=== PATIENT | female | born 1945 | race Caucasian/White ===

== ENCOUNTER 2019-08-20 10:44 | Observation (INO) ==
--- NOTE | 2019-08-20 10:42 | Diag Imaging Result Doc PS360 ---
EXAM: CHEST-2 VIEWS 08/20/2019 HISTORY: Chest Pain TECHNIQUE: PA and lateral chest COMMENT: There is a small platelike opacity in the lingula which was not clearly present on the previous studies of 09/09/2010 and 09/23/2013. The heart size and primary vascularity are within normal limits and otherwise the appearance of the chest has not changed significantly. IMPRESSION: Minimal lingular atelectasis. Electronically signed by Ilya Escudero 08/20/2019 10:39 AM
[~2019-08-20 10:44] MED LIST: ASPIRIN PO STA; LOPRESSOR PO STA; MORPHINE IV PRN; NITROGLYCERIN SL PRN; SODIUM CHLORIDE 0.9% INJ SCH
--- NOTE | 2019-08-20 11:11 | EKG Report ---
Test Performed on : 08/20/2019 11:00:20 AM Test Reason : chest pain Blood Pressure : / mmHG Vent. Rate : 079 BPM Atrial Rate : 079 BPM P-R Int : 152 ms QRS Dur : 072 ms QT Int : 372 ms P-R-T Axes : 061 -09 008 degrees QTc Int : 426 ms Sinus rhythm. with premature atrial complexes. Otherwise normal ECG When compared with ECG of 06-DEC-2018 10:06, premature atrial complexes. are now present Confirmed by Lilia LAI, Koby ([id number]) on 08/21/2019 8:34:25 AM
[2019-08-20] MEDS: PROTONIX IV SCH (11:40)
[2019-08-20 11:55] LABS: AGAP 13; ALB/GLOB RATIO 2.2; ALBUMIN 4.9 g/dL (3.5-5.0); ALKALINE PHOSPHATASE 92 U/L (32-104); BUN 13 mg/dL (8-22); CALCIUM 10.1 mg/dL (8.8-10.2); CHLORIDE 103 mmol/L (98-107); COSMO 281; CREATININE 0.7 mg/dL (0.5-0.9); ESTIMATED GFR > 60; GLUCOSE 97 mg/dL (70-104); GOT 17 U/L (10-30); GPT 14 U/L (10-36); POTASSIUM 4.2 mmol/L (3.5-5.1); SODIUM 141 mmol/L (136-145); TCO2 25 mmol/L (25-35); TOTAL PROTEIN 7.1 g/dL (6.3-8.3)
--- NOTE | 2019-08-20 22:30 | HISTORY AND PHYSICAL ---
CHIEF COMPLAINT: Chest pain last night. HISTORY OF PRESENT ILLNESS: A 74-year-old pleasant white female who is well known to my practice came in with chest pain going to the neck which was bad last night. On prior history, she has some exertional chest pain upon walking up and down for the last few months in [facility]. Pain will relieve with rest. No other symptoms like shortness of breath, PND, orthopnea. EKG had no acute injury or ischemia. She had a stress test done in December [address] Portillo. No reversible ischemia. There was a strong family history of ischemic heart disease. Given the new findings, patient was admitted directly to [facility] for rule out AR and rule out ischemic heart disease. Dr. Rowland was consulted. PAST MEDICAL HISTORY: 1. Left breast cancer stage I, lumpectomy followed by radiation x16. 2. Previous stress test December 2018, negative. 3. Hyperlipidemia. 4. Mild MR. 5. Osteoporosis. 6. Vitamin D deficiency. 7. Metabolic syndrome. 8. Transient global amnesia. PAST SURGICAL HISTORY: Appendectomy, cholecystectomy, hysterectomy with right ovariotomy, left breast lumpectomy recently status post radiation x16. MEDICATIONS: Aspirin, calcium, vitamin D, Nexium 40 mg daily, pravastatin 20 daily. ALLERGIES: To Levaquin. SOCIAL HISTORY: , second time. 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 No smoking. No drug abuse. Living in [place]. FAMILY HISTORY: Mom from bypass at 82. Brother had a bypass surgery. Another brother had multiple myeloma. Father cause not known. HEALTH MAINTENANCE: The patient is due for a physical exam this year. A full flu shot June 2018, mammography October 2018, DEXA scan August 2015, colonoscopy [address] Nguyen. REVIEW OF SYSTEMS: HEENT: No headache. No vision problem. No earache. No sore throat. Neck: No goiter. No lymphadenopathy. No bruit. Cardiopulmonary: Exertional chest pain relieved with rest. No PND. No orthopnea. No dizziness. No swelling of legs. Gastrointestinal: Some bloating sensation and burping. No altered bowel habits, bleeding per rectum. Genitourinary: No history of hesitancy, frequency, dysuria. Integumentary: No skin rashes. Musculoskeletal: No joint pain. Neurologic: No focal symptoms or weakness. PHYSICAL EXAMINATION: VITAL SIGNS: Temperature is 98.7 degrees, pulse 59, blood pressure is 131/61, 5 feet 2 inches, 177 pounds. HEENT: Atraumatic, normocephalic. Pupils equal, reactive to light. TMs are normal. Nose and throat within normal limits. NECK: Supple. No lymphadenopathy. No goiter. CHEST: Bilateral air entry. HEART: Sounds are regular. No murmurs. ABDOMEN: Belly is soft, nontender. Good bowel sounds. EXTREMITIES: No peripheral edema, cyanosis. NEUROLOGICAL: No obvious neurological deficits. INVESTIGATIONS: CBC, SMA 7 are normal. Cardiac enzymes normal. ProBNP was normal. Chest x-ray: Minimal lingular atelectasis. EKG: Normal sinus, nothing acute. ASSESSMENT AND PLAN: A 74-year-old white female admitted to the hospital with new onset of exertional chest pain, strong family history of ischemic heart disease. Previous workup was negative. Admitted to the hospital for basically aspirin, beta blockers, nitrates and morphine as needed, currently pain free. I spoke to Dr. Rowland as well as the family. Diagnostic catheterization versus transfer to [place] for PCI if she needs any stent. Family has not decided yet. In the meantime, continue laboratory workup, and we will follow up. cc: Sudheer Farrar MD [facility]
--- NOTE | 2019-08-21 00:18 | EKG Report ---
Test Performed on : 08/20/2019 9:23:01 PM Test Reason : Routine Blood Pressure : / mmHG Vent. Rate : 074 BPM Atrial Rate : 074 BPM P-R Int : 160 ms QRS Dur : 078 ms QT Int : 412 ms P-R-T Axes : 086 -02 010 degrees QTc Int : 457 ms Normal sinus rhythm. Nonspecific ST abnormality Abnormal ECG When compared with ECG of 20-AUG-2019 11:00, (Unconfirmed) premature atrial complexes. are no longer present Confirmed by Lilia LAI, Koby ([id number]) on 08/21/2019 5:37:44 PM
[2019-08-21 06:43] LABS: BASO# 0.06 X1000 (0.0-0.2); BASO% 1.3 % (0.0-0.8); EOS% 6.4 % (0.0-10.0); HEMATOCRIT 41.3 % (37.0-47.0); HEMOGLOBIN 13.4 g/dL (12.0-16.0); LYMPH% 38.6 % (20.5-51.1); MCH 29.2 PG (27-31); MCHC 32.4 g/dL (33-37); MONO% 8.6 % (1.7-9.3); MPV 9.7 FL (7.4-10.4); NEUT% 45.1 % (42.2-75.2); PLT 221 X1000 (130-400); RBC 4.59 XMIL (4.2-5.4); WBC 4.66 X1000 (4.8-10.8)
[2019-08-21 07:05] LABS: INR 0.97; PTT 30.3 Seconds (22.3-41.8)
[2019-08-21 07:06] LABS: AGAP 10; ALB/GLOB RATIO 1.8; ALBUMIN 3.8 g/dL (3.5-5.0); ALKALINE PHOSPHATASE 74 U/L (32-104); BUN 12 mg/dL (8-22); CALCIUM 8.7 mg/dL (8.8-10.2); CHLORIDE 104 mmol/L (98-107); COSMO 279; CREATININE 0.7 mg/dL (0.5-0.9); ESTIMATED GFR > 60; GLUCOSE 91 mg/dL (70-104); GOT 15 U/L (10-30); GPT 11 U/L (10-36); MAGNESIUM 1.9 mg/dL (1.5-2.7); POTASSIUM 3.9 mmol/L (3.5-5.1); SODIUM 140 mmol/L (136-145); TCO2 26 mmol/L (25-35); TOTAL BILIRUBIN 0.36 mg/dL (0.20-1.00); TOTAL PROTEIN 5.9 g/dL (6.3-8.3)
--- NOTE | 2019-08-21 08:26 | CONSULTATION ---
DATE OF CONSULTATION: 08/20/2019 IMPRESSION: 1. Recent episode of chest discomfort lasting several hours characterized as a chest pressure with radiation up the neck that persisted despite antacid type therapy. Discomfort seemed to improve after she sat up. ECG today benign and initial troponin normal. 2. Infrequent exertional chest discomfort with increased levels of physical activity such as walking up a hill. 3. Gastroesophageal reflux disease. 4. Mild hyperlipidemia treated with pravastatin. 5. 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 RECOMMENDATIONS: 1. Telemetry observation. 2. Follow up cardiac enzymes. 3. Intense proton pump inhibitor. 4. The patient referred for cardiac catheterization/coronary angiography for definitive screening/evaluation for possible coronary disease underlying some of her chest symptoms. She had negative stress nuclear study last year per report. She expresses preference to have cardiac catheterization/coronary angiography procedure performed in [place] in the event she needs percutaneous coronary intervention with this. The rationale for pursuing cardiac catheterization/coronary angiography for evaluation of her symptoms was discussed with her along with potential hazards. HISTORY: This 74-year-old white female with past history of mild hyperlipidemia, gastroesophageal reflux disease, and ductal carcinoma in situ involving the left breast treated with lumpectomy was referred from Dr. Farrar's office this morning for evaluation of chest discomfort. She relates that last night after going to bed she developed chest pressure that was fairly intense. Discomfort extended up into her neck. Discomfort persisted despite antacid therapy. She sat up and the discomfort seems to have diminished. She took an aspirin. Discomfort ultimately resolved after perhaps 3 hours of total duration. She sought followup with Dr. Farrar today, and was referred to the hospital for admission after ECG was benign. She describes some occasional exertional chest discomfort such as walking up a hill. Discomfort is somewhat of a chest pressure. However when she has this she relates that she can belch, and it seems to help discomfort. She has never smoked. She does drink a glass of wine most evenings with her evening meal. She had a stress myocardial perfusion study last year which was reportedly negative. PAST MEDICAL HISTORY: 1. Mild hyperlipidemia treated with Pravachol. 2. Gastroesophageal reflux disease. 3. Ductal carcinoma in situ involving the left breast treated with left breast lumpectomy. ALLERGIES: She has no known drug allergies. MEDICATIONS PRIOR TO ADMISSION: As listed. SOCIAL HISTORY: She is . She does not smoke. She drinks a glass of wine with her evening meal most evenings. FAMILY HISTORY: Negative for premature coronary disease. REVIEW OF SYSTEMS: Pulmonary: Noncontributory. Gastrointestinal: Noncontributory beyond history present illness. Constitutional: Noncontributory beyond history of present illness. Remainder of review of systems negative/noncontributory beyond history of present illness with 14 total systems reviewed. PHYSICAL EXAMINATION: General: This is a pleasant older white female in no distress. Vital signs: Blood pressure 131/61, heart rate 60 and regular, and oxygen saturation 98% on room air. HEENT: Extraocular movements intact. Mucous membranes are moist. Neck: Supple without jugular venous distention. There are no carotid bruits. Chest: Clear to auscultation bilaterally. Cardiac: Exam reveals a regular rate and rhythm without appreciable murmur or gallop. Abdomen: Soft. Bowel sounds are normal. Extremities: Without edema. Neurologic: Reveals her to be alert and fully oriented. Speech is fluent. Moves all 4 extremities equally well. Skin: Warm and dry. Psychiatric: Reveals her mood to be appropriate. DATA: A 12 lead EKG obtained at 11:00 in the morning today demonstrates sinus rhythm with occasional premature atrial complex but is otherwise within normal limits. LABORATORY DATA: Obtained today demonstrates sodium 141, potassium 4.2, chloride 103, carbon dioxide 25, BUN 13 creatinine 0.7, and glucose 97. Troponin T less than 0.01. Pro B-natriuretic peptide level 60. CPK 46. cc: MD Sudheer Aceves MD
[2019-08-21] MEDS ORDERED: PRAVACHOL PO SCH (09:00)
[2019-08-21] MEDS: PROTONIX IV SCH (09:29)
[2019-08-21 11:26] VITALS: BP 105/54
--- NOTE | 2019-08-21 14:54 | PROGRESS NOTE ---
DATE: 08/21/2019 SUBJECTIVE: The patient continues without further chest discomfort. She denies shortness of breath on room air. OBJECTIVE: Vital Signs: Blood pressure 105/54, heart rate 67, oxygen saturation 96% on room air. Chest: Clear to auscultation. Cardiac: Regular rate and rhythm without appreciable murmur or gallop. Extremities: Without edema. LABORATORY DATA: Includes a white blood cell count of 4.66, hematocrit 41.3, hemoglobin 13.4, platelet count 221,000. Sodium 140, potassium 3.9, chloride 104, carbon dioxide 26, BUN 12, creatinine 0.7, glucose 91. Initial troponin less than 0.01. Followup troponin less 0.01 and less than 0.01. IMPRESSION: 1. Recent episode of chest discomfort lasting several hours characterized as pressure with radiation to the neck that persisted despite antacid therapy. Electrocardiogram benign, and serial troponins normal. 2. Infrequent exertional chest discomfort with increased levels of physical activity. 3. Gastroesophageal reflux disease. 4. Mild hyperlipidemia treated with pravastatin. 5. Previous negative stress myocardial perfusion study last year. RECOMMENDATIONS: 1. Given that serial cardiac enzymes have been negative, it is reasonable to allow the patient to pursue further evaluation as an outpatient as she expresses preference to have cardiac catheterization/coronary angiography procedure in [place]. 2. Arrangements to be made to facilitate having outpatient cardiac catheterization/coronary angiography in [facility] this week. cc: MD Sudheer Aceves MD
--- NOTE | 2019-08-27 20:57 | DISCHARGE SUMMARY ---
ADMISSION DATE: 08/20/2019 DISCHARGE DATE: 08/21/2019 DISCHARGING DIAGNOSIS: New onset of chest pain. EKG is unremarkable. Cardiac enzymes were negative. Stress test in December 2017 was negative. SECONDARY DIAGNOSES: 1. Left breast cancer, stage I lumpectomy followed by radiation x16. 2. Hyperlipidemia. 3. Osteoporosis. 4. Metabolic syndrome. 5. Vitamin D deficiency. CONSULTS: Dr. Rowland. BRIEF HISTORY: Please see the H and P that was done, 08/20/2019. In brief, she is a 70-year-old white female with above problems. She was admitted directly from my office with exertional chest pain relieving with rest consistent with new onset of angina. The patient is pain free. The patient was ruled out for DC. Serial cardiac enzymes were negative. Patient was set up for left heart catheterization by Dr. Portillo on the following day. Family wants to go to [facility] for catheterization. She was ruled out for DC. LABS: CBC: White cell count 4.6, hematocrit 41, platelets 221,000. PT/INR is normal. SMA 12 is normal. Cardiac enzymes were negative. I spoke to the family at Dr. Rowland. I think they agreed to do the left heart catheterization as an outpatient in [facility] on . In between, if the patient has any chest pain we will go to the ER. I explained the risks and benefits. They want to do as an outpatient since she is pain free. DISCHARGE INSTRUCTIONS: 1. Aspirin 81 mg daily. 2. Pravastatin 20 mg daily. 3. Nitroglycerin as needed. 4. Outpatient left heart catheterization. cc: MD Josh Woodson MD
== END 2019-08-21 15:05 | disposition home or self-care (01) ==
LOC: 2N 17:24
PROVIDERS: ADMIT Internal Medicine; ATTEND Internal Medicine